=== PATIENT | male | born 1955 | race Caucasian/White ===

== ENCOUNTER 2019-05-04 13:58 | Emergency (ER) | payer MEDICAID ==
[~2019-05-04] VITALS: Ht 205.7 cm; Wt 105.0 kg
[2019-05-04 14:00] VITALS: BP 154/85
[2019-05-04] MEDS: ASPIRIN 81 MG TABLET CHEW PO ONE (14:30)
--- NOTE | 2019-05-04 14:35 | NUR ---
task rn: pt arrives to ed with c/o shortness of breath when he takes a deep breath. pt reports chronic resp hx. pt denies truama. recently seen at [facility]. pt connected to all monitors. VSS. awaiting further ordwers. call light in reach.
[2019-05-04] MEDS ORDERED: ASPIRIN 81 MG TABLET CHEW ONE ×2 (14:37)
--- NOTE | 2019-05-04 14:38 | NUR ---
PT MEDICATED PER EMAR.
[2019-05-04 14:51] LABS: BASOPHILS # (AUTO) 0.02 x10^3/uL (0-0.1); BASOPHILS % (AUTO) 1 % (0-1); EOSINOPHILS # (AUTO) 0.21 x10^3/uL (0-0.4); EOSINOPHILS % (AUTO) 6 % (1-7); LYMPHOCYTES % (AUTO) 25 % (22-44); MD NO; MEAN CORPUSCULAR HEMOGLOBIN 33.1 pg (27.5-34.5); MEAN CORPUSCULAR HGB CONC 34.2 g/dL (33.2-36.2); MEAN CORPUSCULAR VOLUME 96.8 fL (81-97); MEAN PLATELET VOLUME 7.1 fL (7.4-10.4); MONOCYTES % (AUTO) 11 % (2-9); NEUTROPHILS % (AUTO) 58 % (42-75); PLATELET COUNT 202 x10^3/uL (130-400); RED CELL DISTRIBUTION WIDTH 14.7 % (9.4-14.8)
[2019-05-04 15:01] LABS: PROTHROMBIN TIME 10.5 Seconds (9.6-11.5)
[2019-05-04 15:03] LABS: ALANINE AMINOTRANSFERASE 20 U/L (12-78); ALBUMIN 3.6 g/dL (3.4-5.0); ANION GAP 9 mmol/L (5-15); CALCIUM 8.6 mg/dL (8.5-10.1); CHLORIDE 109 mmol/L (98-107); CREATININE 1.69 mg/dL (0.7-1.3)
[2019-05-04 15:07] LABS: ALKALINE PHOSPHATASE 90 U/L (45-117); BILIRUBIN,TOTAL 0.6 mg/dL (0.2-1.0); TOTAL PROTEIN 7.2 g/dL (6.4-8.2); TROPONIN I < 0.015 ng/mL (0.000-0.045)
[2019-05-04] MEDS ORDERED: LEVO100T5 PO (15:10)
[2019-05-04] MEDS ORDERED: CARV12.52 PO (15:10)
[2019-05-04] MEDS ORDERED: ATOR20TA PO (15:10)
[2019-05-04] MEDS ORDERED: LOSARTAN PO (15:10)
[2019-05-04] MEDS ORDERED: APIX5TAB PO (15:10)
[2019-05-04] MEDS ORDERED: FURO40TA6 PO (15:10)
[2019-05-04] MEDS ORDERED: ASPI-496 PO (15:10)
[2019-05-04] MEDS ORDERED: AMLO10TA8 PO (15:10)
--- NOTE | 2019-05-04 16:17 | NUR ---
Patient given discharge instructions and they have confirmed that they understand the instructions. Patient ambulatory with steady gait with personal wheelchair. Pt used personal wheelchair as a walker. Pt left with d/c paperwork, prescription, and all personal belongings. NADN. Pt encouraged to return to ED if symptoms change or worsen.
== END 2019-05-04 16:19 | disposition home or self-care (01) ==
LOC: ED 14:42
DX: R09.1 Pleurisy (principal); R05 Cough; R00.2 Palpitations; R60.9 Edema, unspecified; I11.0 Hypertensive heart disease with heart failure; I50.9 Heart failure, unspecified; F17.200 Nicotine dependence, unspecified, uncomplicated; Z86.73 Personal history of transient ischemic attack (TIA), and cerebral infarction without residual deficits; Z85.528 Personal history of other malignant neoplasm of kidney
CPT/HCPCS: 36415; 71045; 80053; 83880; 84484; 85025; 85610; 85730; 93005; 99284

== ENCOUNTER 2020-05-09 01:25 | Emergency (ER) | payer MEDICAID ==
[~2020-05-09] VITALS: Ht 205.7 cm; Wt 119.6 kg
[~2020-05-09 01:25] MED LIST: AMLO10TA8 PO; APIX5TAB PO; ASPI-496 PO; ATOR20TA PO; CARV12.52 PO; FURO40TA6 PO; LEVO100T5 PO; LOSARTAN PO
[2020-05-09 01:32] VITALS: BP 192/118
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
== END 2020-05-09 03:05 | disposition left against medical advice (07) ==
LOC: ED 02:52
DX: M79.672 Pain in left foot (principal); Z72.9 Problem related to lifestyle, unspecified; F17.290 Nicotine dependence, other tobacco product, uncomplicated; I11.0 Hypertensive heart disease with heart failure; I50.9 Heart failure, unspecified; Z86.73 Personal history of transient ischemic attack (TIA), and cerebral infarction without residual deficits
CPT/HCPCS: 99282; 99406

== ENCOUNTER 2020-05-30 13:34 | Emergency (ER) | payer MEDICAID ==
[~2020-05-30] VITALS: Ht 205.7 cm; Wt 113.1 kg
[2020-05-30 13:36] VITALS: BP 188/114
--- NOTE | 2020-05-30 14:29 | NUR ---
first contact with pt. pt c/o Left knee pain "after twisting leg getting off bus" pt's aox4. resps even and unlabored.
--- NOTE | 2020-05-30 14:48 | NUR ---
went in to apply meredith wrap to pt. knee and patient refused care stating "I don't want that take it off."
--- NOTE | 2020-05-30 15:29 | NUR ---
SNACKS AND JUICE PROVIDED PER REQUEST AT THIS TIME.
--- NOTE | 2020-05-30 15:54 | NUR ---
Patient given discharge instructions and they have confirmed that they understand the instructions.
== END 2020-05-30 15:54 | disposition home or self-care (01) ==
LOC: ED 14:47
DX: S83.412A Sprain of medial collateral ligament of left knee, initial encounter (principal); I11.0 Hypertensive heart disease with heart failure; I50.9 Heart failure, unspecified; F17.200 Nicotine dependence, unspecified, uncomplicated; Z85.528 Personal history of other malignant neoplasm of kidney; Z86.718 Personal history of other venous thrombosis and embolism; X50.0XXA Overexertion from strenuous movement or load, initial encounter; Y93.89 Activity, other specified; Y92.410 Unspecified street and highway as the place of occurrence of the external cause; Y99.8 Other external cause status
CPT/HCPCS: 99283

== ENCOUNTER 2020-07-26 15:46 | Emergency (ER) | payer MEDICAID ==
[~2020-07-26] VITALS: Ht 195.6 cm; Wt 110.0 kg
[2020-07-26 15:50] VITALS: BP 172/97
== END 2020-07-26 16:28 | disposition left against medical advice (07) ==
LOC: ED 15:50
DX: I11.0 Hypertensive heart disease with heart failure (principal); I50.9 Heart failure, unspecified; F17.200 Nicotine dependence, unspecified, uncomplicated; Z86.73 Personal history of transient ischemic attack (TIA), and cerebral infarction without residual deficits; Z85.528 Personal history of other malignant neoplasm of kidney
CPT/HCPCS: 99281

== ENCOUNTER 2020-07-26 17:44 | Emergency (ER) | payer MEDICAID ==
[~2020-07-26] VITALS: Ht 205.7 cm; Wt 109.0 kg
[2020-07-26 17:55] VITALS: BP 168/107
--- NOTE | 2020-07-26 18:40 | NUR ---
PT UPSET, STATES HE LEFT HIS MEDS IN HIS WHEELCHAIR IN [place] AND DOESN'T KNOW WHEN HE'LL BE ABLE TO GET BACK THERE. ALSO STATES HE CAN'T GO TO [facility] BECAUSE THEY WON'T HELP HIM. PT DOESN'T KNOW WHICH MEDICATIONS HE TAKES, STATES HE GAVE HIS LIST TO SOMEONE AND DIDN'T GET IT BACK. INFORMED PT THAT WE CAN'T HELP HIM IF HE'S UNABLE TO PROVIDE THIS INFORMATION. D/C INSTRUCTIONS PROVIDED TO PT, PT AMBULATED OUT OF ED WITH L LEG SPLINT WITHOUT DIFFICULTY.
== END 2020-07-26 19:03 | disposition home or self-care (01) ==
LOC: ED 18:15
DX: I10 Essential (primary) hypertension (principal); Z76.0 Encounter for issue of repeat prescription
CPT/HCPCS: 99281

== ENCOUNTER 2020-11-24 23:28 | Emergency (ER) | payer MEDICAID ==
[~2020-11-24] VITALS: Ht 198.1 cm; Wt 105.0 kg
[~2020-11-24 23:28] MED LIST changes: +AMLO-211 PO; -AMLO10TA8 PO
--- NOTE | 2020-11-24 23:52 | NUR ---
PT HERE FOR CHEST PAIN X 1 WEEK. PT JUST DISCHARGED FROM HOSPITAL IN [place] FOR SAME. VSS. 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 XRAY AT BEDSIDE. CALL LIGHT IN REACH
[2020-11-25 00:30] LABS: BASOPHILS % (AUTO) 1 % (0-1); EOSINOPHILS % (AUTO) 3 % (1-7); LYMPHOCYTES % (AUTO) 20 % (22-44); MEAN CORPUSCULAR HEMOGLOBIN 32.6 pg (27.5-34.5); MEAN CORPUSCULAR HGB CONC 34.3 g/dL (33.2-36.2); MEAN PLATELET VOLUME 6.9 fL (7.4-10.4); MONOCYTES % (AUTO) 11 % (2-9); NEUTROPHILS % (AUTO) 66 % (42-75); PLATELET COUNT 163 x10^3/uL (130-400); RED BLOOD COUNT 3.65 x10^6/uL (4.38-5.82)
[2020-11-25 00:32] LABS: MD NO
[2020-11-25 00:40] LABS: ALANINE AMINOTRANSFERASE 20 U/L (12-78); ALBUMIN 3.5 g/dL (3.4-5.0); ANION GAP 9 mmol/L (5-15); CALCIUM 8.7 mg/dL (8.5-10.1); CHLORIDE 106 mmol/L (98-107); CREATININE 1.96 mg/dL (0.7-1.3)
[2020-11-25 00:44] LABS: ALKALINE PHOSPHATASE 88 U/L (45-117); BILIRUBIN,TOTAL 0.4 mg/dL (0.2-1.0); TOTAL PROTEIN 6.9 g/dL (6.4-8.2); TROPONIN I 0.027 ng/mL (0.000-0.045)
[2020-11-25 00:49] VITALS: BP 153/93
--- NOTE | 2020-11-25 01:09 | NUR ---
PT RESTING. VSS. PT HAS NO NEEDS AT THIS TIME. CALL LIGHT IN REACH
== END 2020-11-25 01:51 | disposition home or self-care (01) ==
LOC: ED 23:58
DX: R07.89 Other chest pain (principal); R06.02 Shortness of breath; I10 Essential (primary) hypertension; I48.91 Unspecified atrial fibrillation; I25.2 Old myocardial infarction
CPT/HCPCS: 36415; 71045; 80053; 84484; 85025; 93005; 99285

== ENCOUNTER 2020-11-27 01:41 | Emergency (ER) | payer MEDICAID ==
[~2020-11-27] VITALS: Ht 205.7 cm; Wt 109.0 kg
--- NOTE | 2020-11-27 02:03 | NUR ---
pt reports coming into ed tonight due to abdominal pain that has been present for a week, states "i havent pooped in a week either and now i have pain down my belly into my groin." pt also states, "i need you to fix the rubber on my wheelchair wheel and i hurt my knee when i stood up to fix it myself." pt provided warm blankets for comfort, place on spo2/bp monitoring, wctm.
--- NOTE | 2020-11-27 02:06 | NUR ---
Covering primary nurse, pt in NAD.
--- NOTE | 2020-11-27 02:25 | NUR ---
Pt given urinal to provide urine sample.
[2020-11-27 02:33] LABS: BASOPHILS % (AUTO) 1 % (0-1); EOSINOPHILS % (AUTO) 3 % (1-7); LYMPHOCYTES % (AUTO) 24 % (22-44); MEAN CORPUSCULAR HEMOGLOBIN 33.1 pg (27.5-34.5); MEAN CORPUSCULAR HGB CONC 34.6 g/dL (33.2-36.2); MEAN PLATELET VOLUME 6.9 fL (7.4-10.4); MONOCYTES % (AUTO) 10 % (2-9); NEUTROPHILS % (AUTO) 61 % (42-75); PLATELET COUNT 152 x10^3/uL (130-400); RED BLOOD COUNT 3.85 x10^6/uL (4.38-5.82); RED CELL DISTRIBUTION WIDTH 14.3 % (9.4-14.8)
[2020-11-27 02:35] LABS: MD NO
--- NOTE | 2020-11-27 02:40 | NUR ---
urine sent to lab, pt nad, sitting up on wheelchair in room, no change in condition, awaiting records, wctm.
[2020-11-27 02:43] LABS: ALANINE AMINOTRANSFERASE 21 U/L (12-78); ALBUMIN 3.7 g/dL (3.4-5.0); ANION GAP 8 mmol/L (5-15); CHLORIDE 107 mmol/L (98-107); CREATININE 1.68 mg/dL (0.7-1.3)
[2020-11-27 02:45] LABS: ALKALINE PHOSPHATASE 104 U/L (45-117); BILIRUBIN,TOTAL 0.5 mg/dL (0.2-1.0); TOTAL PROTEIN 7.3 g/dL (6.4-8.2)
[2020-11-27 03:09] LABS: MICROSCOPIC AUTO
[2020-11-27 03:17] VITALS: BP 176/98
--- NOTE | 2020-11-27 03:19 | NUR ---
pt nad, no change in condition, resting on gurney, appears comfortable, bed in lowest, rails engaged, call light on lap, wctm.
--- NOTE | 2020-11-27 03:26 | NUR ---
late entry d/t pt care: Carol LYNN at , pt to be dc'd, pt visibly and loudly aggitated regarding being discharged. After PA left room pt stating loudly "This is some bullshit, im getting fucking sick. This is different than it was for my visit yesterday and the day before." pt resting on ebony mancini, [place]. to be dc'd
--- NOTE | 2020-11-27 03:38 | NUR ---
Patient given discharge instructions refusing to confirm or acknowledge understanding, stating to RN "this is different than last time" pt becoming aggitated, stating "well youll be hearing from my shift supervisor if im not before i can contact him and if i am then my kids will finish this". Patient using wheelchair appropriately to discharge and able to transfer self at time of dc. pt nad, no acute changes in condition. no personal belongings left in room at this time of dc.
--- NOTE | 2020-11-27 06:24 | NUR ---
chart accessed for records request from [facility].
== END 2020-11-27 03:42 | disposition home or self-care (01) ==
LOC: ED 02:52
DX: G89.29 Other chronic pain (principal); R10.84 Generalized abdominal pain; M79.606 Pain in leg, unspecified; I11.0 Hypertensive heart disease with heart failure; I50.9 Heart failure, unspecified; F17.210 Nicotine dependence, cigarettes, uncomplicated; Z86.73 Personal history of transient ischemic attack (TIA), and cerebral infarction without residual deficits; Z85.53 Personal history of malignant neoplasm of renal pelvis
CPT/HCPCS: 36415; 80053; 81001; 85025; 93005; 99284; 99406